=== PATIENT | male | born 1965 ===

== ENCOUNTER 2016-09-30 05:14 | Emergency (ER) | payer OTHER ==
[~2016-09-30] VITALS: Ht 175.3 cm; Wt 93.0 kg
[2016-09-30 06:53] LABS: Basophils # (auto) 0 uL; Basophils % (auto) 0.4 % (0.0-2.0); Eosinophils # (auto) 0.2 uL; Eosinophils % (auto) 2.9 % (0.0-7.0); Hematocrit 43.5 % (41.0-53.0); Lymphocytes # (auto) 2.7 uL; Lymphocytes % (auto) 31.9 % (10.0-50.0); Mean Corpuscular Hemoglobin 31.4 pg (28.0-32.0); Mean Corpuscular Hgb Conc. 34.4 g/dL (32.0-36.0); Mean Corpuscular Volume 91.2 fL (80.0-100.0); Mean Platelet Volume 8.2 fL (7.4-10.4); Monocytes # (auto) 0.8 uL; Monocytes % (auto) 9.3 % (0.0-12.0); Neutrophils # (auto) 4.7 uL; Neutrophils % (auto) 55.5 % (37.0-80.0); Platelet Count (auto) 246 10^3/uL (140-450); White Blood Cell 8.4 10^3/uL (4.4-10.8)
[2016-09-30 07:17] LABS: Albumin 3.9 g/dL (3.4-5.0); Anion Gap 12 (5-15); Aspartate Aminotransferase 16 U/L (15-37); Blood Urea Nitrogen 21 mg/dL (7-18); Calcium 8.7 mg/dL (8.5-10.1); Carbon Dioxide 25 mmol/L (21-32); Chloride 106 mmol/L (98-107); GFR African American 123 mL/min; GFR Non-African American 102 mL/min; Glucose 96 mg/dL (74-106); Magnesium 2.5 mg/dL (1.6-2.6); Potassium 3.4 mmol/L (3.5-5.1); Sodium 143 mmol/L (136-145)
[2016-09-30 07:21] LABS: INR 1.02 (0.9-1.15); Partial Thromboplastin Time 28.3 sec (22.64-33.71); Prothrombin Time 11.1 sec (9.37-12.3)
[2016-09-30] MEDS ORDERED: SODIUM CHLORIDE 0.9% 1,000 ML IV ONE (07:23)
[2016-09-30 07:29] LABS: Alkaline Phosphatase 94 U/L (45-117); Total Protein 7.1 g/dL (6.4-8.2)
[2016-09-30] MEDS ORDERED: ASPirin 81 mg TAB PO ONE (07:30)
[2016-09-30] MEDS ORDERED: METOCLOPRAMIDE HCL 5MG/ml INJ 2ml VIAL IV ONE (07:30)
[2016-09-30] MEDS ORDERED: KETOROLAC TROMETH 30 MG/ML 1ML VIAL IV ONE (07:30)
[2016-09-30 08:56] VITALS: BP 110/70
[2016-09-30] MEDS ORDERED: POTASSIUM CHL 20 Meq TABLET PO ONE (11:45)
== END 2016-09-30 12:29 | disposition home or self-care (01) ==
LOC: ER 05:14
DX: R07.89 Other chest pain (principal); M75.52 Bursitis of left shoulder; E87.6 Hypokalemia; E78.5 Hyperlipidemia, unspecified
CPT/HCPCS: 36415; 71010; 71020; 80053; 83735; 84443; 84484; 85025; 85610; 85730; 93005; 94761; 96361; 96374; 96375; 99285; J1885; J2765